=== PATIENT | male | born 1940 | race Caucasian/White ===

== ENCOUNTER 2022-03-01 11:30 | Emergency (ER) | payer OTHER ==
[~2022-03-01] VITALS: Ht 185.4 cm; Wt 113.4 kg
[~2022-03-01 11:30] MED LIST: ALLO100T PO; AMOX-426 PO; BUDE0.5A IH; FELO10TA46 PO; FURO-149 PO; GLYB5TAB7 PO; INSU100V9 SQ; LISI5TAB PO; LOVA10TA55 PO; METF-379 PO; NORCO5 PO; SPIR25TA PO; WARF5TAB2 PO
--- NOTE | 2022-03-01 11:37 | NUR ---
Patient to ER bed 05 to gown for evaluation. Side rails up.
--- NOTE | 2022-03-01 11:40 | NUR ---
RECEIVED PT FROM YANELI HERRMANN. PT BIB , PT WAS SENT TO ER BY WHO WANTED PT'S PT/INR CHECKED PT IS S/P FALL TUESDAY, PT HAD XRAY THAT FOUND NO FRACTURES, BUT LAST NIGHT PT WAS HALLUCINATING AND PT HAS INCREASED RIB PAIN. PT DID NOT TAKE MORNING MEDS, BS FOUND TO 330. PT IS AAOX4 AT THIS TIME, PERRL. RESP E/U. ON R/A. DENIES N/V/D/C. PT HAS LEFT HAND BRACE WITH 2 + EDEMA TO HAND. PT EDUCATED TO ELEVATE ARM TO DECREASE SWELLING. PT VERBALIZED UNDERSTANDING. PT STATES BACK PAIN IS 5/10 WHEN HE MOVES. VSS, MONITOR IN PLACE. SIDERAILS UP X2.
[2022-03-01 11:42] VITALS: BP_SYST 168
--- NOTE | 2022-03-01 12:10 | NUR ---
LABS AND URINE OBTAINED.
[2022-03-01 12:45] LABS: BASOPHILS # (AUTO) 0.1 K/uL (0.0-0.2); BASOPHILS % (AUTO) 0.8 % (0.0-2.0); EOSINOPHILS # (AUTO) 0.1 K/uL (0.0-0.4); EOSINOPHILS % (AUTO) 0.9 % (0.0-4.0); HEMATOCRIT 40.2 % (36-54); HEMOGLOBIN 13.4 g/dL (14.0-18.0); LYMPHOCYTES # (AUTO) 1.2 K/uL (1.0-5.5); LYMPHOCYTES % (AUTO) 13.1 % (20.5-51.5); MEAN CORPUSCULAR HEMOGLOBIN 31 pg (27-31); MEAN CORPUSCULAR HGB CONC 34 % (32-36); MEAN CORPUSCULAR VOLUME 92 fL (79.0-98.0); MONOCYTES % (AUTO) 10.2 % (1.7-9.3); PLATELET COUNT (AUTO) 157 K/uL (130-430); RED BLOOD CELL COUNT(AUTO) 4.38 MIL/uL (4.2-6.2); RED CELL DISTRIBUTION WIDTH 15.5 % (9.0-15.0); WHITE BLOOD COUNT (AUTO) 9.4 K/uL (4.8-10.8)
--- NOTE | 2022-03-01 12:50 | NUR ---
URINE OBTAINED AND TAKEN TO LAB.
[2022-03-01 13:04] LABS: ANION GAP 7 (5-15); CALCIUM 9.2 mg/dL (8.4-11.0); CHLORIDE 101 mmol/L (98-107); GLUCOSE 338 mg/dL (70-99); UREA NITROGEN, BLOOD 21 mg/dL (8-21)
[2022-03-01 13:09] LABS: ALANINE AMINOTRANSFERASE 31 U/L (12-78); ALBUMIN 2.9 g/dL (3.4-4.8); ASPARTATE AMINOTRANSFERASE 30 U/L (10-37); TOTAL BILIRUBIN 1.4 mg/dL (0.0-1.0)
[2022-03-01 13:11] LABS: ACETONE, SERUM NEGATIVE (NEGATIVE)
[2022-03-01 13:45] LABS: BILIRUBIN,URINE NEGATIVE (NEGATIVE); BLOOD, URINE 1+ (NEGATIVE); CLARITY/URINE CLEAR (CLEAR); COLOR,URINE YELLOW (YELLOW); GLUCOSE,URINE 1+ (NEGATIVE); KETONES,URINE TRACE (NEGATIVE); LEUKOCYTE ESTERASE ,URINE NEGATIVE (NEGATIVE); NITRITE, URINE NEGATIVE (NEGATIVE); PROTEIN URINE 2+ (NEGATIVE); UROBILINOGEN,URINE 0.2 (0.2-1.0)
[2022-03-01] MEDS ORDERED: cloNIDine HCL 0.1 MG TABLET PO ONE (13:45)
[2022-03-01] MEDS ORDERED: HYDROcodone/ACETAMIN 7.5-325 MG TAB PO ONE (13:45)
--- NOTE | 2022-03-01 14:19 | NUR ---
B/P 201/118. HR 86, PT HAS C/O BACK PAIN 11/25. NORCO 7.5MG PO AND CLONIDINE 0.2MG GIVEN. WILL CONTINUE TO MONITOR.
--- NOTE | 2022-03-01 14:25 | NUR ---
PT TAKEN TO C/T SCAN AT THIS TIME.
--- NOTE | 2022-03-01 14:28 | NUR ---
CRITICAL LAB VALUE: PTT 94.8 REPORTED BY CAMILLE NOTIFIED PRIMARY RN OMID AND MD PIERCE
[2022-03-01 14:31] LABS: BACTERIA,URINE FEW /HPF (None Seen); MUCUS,URINE None Seen /LPF (None Seen); RBC,URINE 0-3 /HPF (0-3); WBC,URINE 0-3 /HPF (0-3)
--- NOTE | 2022-03-01 14:42 | NUR ---
PT BACK FROM CT SCAN.
--- NOTE | 2022-03-01 14:50 | NUR ---
DR. PIERCE MADE AWARE PT'S PTT 94.8. NNOS
[2022-03-01] MEDS ORDERED: LISI40TA13 PO (15:18)
[2022-03-01] MEDS ORDERED: NOR10 PO (15:18)
[2022-03-01] MEDS ORDERED: MECL-160 PO (15:18)
[2022-03-01] MEDS ORDERED: SPIR25TA6 PO (15:18)
[2022-03-01] MEDS ORDERED: COR6.25 PO (15:18)
[2022-03-01] MEDS ORDERED: WARF4TAB72 PO (15:18)
[2022-03-01] MEDS ORDERED: LOVA40TA75 PO (15:18)
[2022-03-01] MEDS ORDERED: ALLO300T2 PO (15:18)
[2022-03-01] MEDS ORDERED: SYN50 PO (15:18)
[2022-03-01] MEDS ORDERED: COLC0.6T67 PO (15:18)
[2022-03-01] MEDS ORDERED: ALBMDI INH (15:18)
[2022-03-01] MEDS ORDERED: TAMS0.4C96 PO (15:18)
[2022-03-01] MEDS ORDERED: METF-518 PO (15:18)
[2022-03-01] MEDS ORDERED: ACET-2634 PO (15:46)
--- NOTE | 2022-03-01 15:57 | NUR ---
DR. PIERCE AT BEDSIDE TO DISCUSS POC.
[2022-03-01] MEDS ORDERED: LIDOCAINE PATCH 5% 1 EA TP ONE (16:00)
--- NOTE | 2022-03-01 16:17 | NUR ---
LIDOCAINE PATCH APPLIED TO RIGHT BACK. PT EDUCATED TO LEAVE ON FOR 24 HOURS. PT VERBALIZED UNDERSTANDING.
[2022-03-01 16:38] VITALS: BP_SYST 172
--- NOTE | 2022-03-01 16:40 | NUR ---
Patient given written and verbal discharge instructions and verbalizes understanding. ER MD discussed with patient the results and treatment provided. Patient in stable condition. ID arm band removed. IV catheter removed intact and dressing applied, no active bleeding. Rx of TYLENOL X STRENGTH given. Patient educated on pain management and to follow up with PMD. Pain Scale 04/27. Opportunity for questions provided and answered. Medication side effect fact sheet provided.
== END 2022-03-01 16:38 | disposition home or self-care (01) ==
LOC: SED 11:30
DX: S09.90XA Unspecified injury of head, initial encounter (principal); J44.9 Chronic obstructive pulmonary disease, unspecified; E11.9 Type 2 diabetes mellitus without complications; I10 Essential (primary) hypertension; E78.5 Hyperlipidemia, unspecified; Z79.4 Long term (current) use of insulin; Z79.899 Other long term (current) drug therapy; Z20.822 Contact with and (suspected) exposure to COVID-19; W22.8XXA Striking against or struck by other objects, initial encounter; Y93.89 Activity, other specified; Y92.89 Other specified places as the place of occurrence of the external cause; Y99.8 Other external cause status
CPT/HCPCS: 36415; 70450-TC; 72125-TC; 76376; 80053; 81000; 82009; 82962; 85025; 85730-TC; 99284